=== PATIENT | female | born 1995 | race American Indian/Alaskan Native ===

== ENCOUNTER 2018-01-31 14:23 | Emergency (ER) | payer OTHER ==
--- NOTE | 2018-01-31 19:52 | Emergency Department Report ---
Abscess Boil HPI - HPI Chief Complaint: Animal Bite Stated Complaint: LUMP ON BACK Time Seen by Provider: 01/31/18 19:44 Duration: 3 Days Location: Back Severity: None History: Yes Insect Bite (left lower back), No Fever, No Pain, No Purulent Drainage, No Numbness, No Foreign Body, No Previous History HPI: This is a 22-year-old female here reports that she has insect bite and she does not know what kind and second was to her left lower back that happened 3 days ago and she is reporting redness and swelling to the area. She denies any fever or chills. Denies any drainage. Pain is 0 out of 10. No medication taken. Tetanus vaccine is not up-to-date. Denies any wheezing, cough, stridor , chest pain or shortness of breath. Denies any nausea or vomiting. Home Medications: Previous Rx's Medication Instructions Recorded Last Taken Type Cephalexin [Keflex] 500 mg PO Q8HR 7 Days #21 cap 01/31/18 Unknown Rx Allergies/Adverse Reactions: Allergies Allergy/AdvReac Type Severity Reaction Status Date / Time morphine Allergy Angioedema Verified 01/31/18 14:40 ED Review of Systems ROS: Stated complaint: LUMP ON BACK Other details as noted in HPI Constitutional: denies: chills, fever ENT: denies: ear pain, throat pain, congestion Respiratory: denies: cough, shortness of breath, SOB at rest, wheezing Cardiovascular: denies: chest pain, palpitations Gastrointestinal: denies: nausea, vomiting Musculoskeletal: denies: back pain, joint swelling, arthralgia Skin: rash, other (redness, swelling status post insect bite to left lower back) . denies: lesions Hematological/Lymphatic: as per HPI. denies: easy bruising ED Past Medical Hx - Past Medical History Previous Medical History?: No - Surgical History Past Surgical History?: No - Family History Family history: no significant - Social History Smoking Status: Never Smoker Substance Use Type: None - Medications Home Medications: Home Medications Medication Instructions Recorded Confirmed Last Taken Type Cephalexin [Keflex] 500 mg PO Q8HR 7 Days #21 cap 01/31/18 Unknown Rx ED Abscess Boil Physical Exam - Exam General: Vital signs noted. No distress. Alert and acting appropriately. This is a 22-year-old female well-nourished well-developed in no acute distress. She is nontoxic in appearance Front/Back of Body, Lg (Color): 1 - Patient with erythema, swelling would pinpoint opening to center to left lower back. Positive induration without any fluctuance. No drainage noted from site. 5 cm in length Size: 5 cm (nurse reports 6 inches but measured at 5 cm.) Exam: Yes Tenderness (minimal tenderness to left lumbar.), Yes Surrounding Cellulites/Erythema (3 cm of surrounding cellulitis), Yes Normal Neurologic Exam (alert and oriented 3. Normal gait), Yes Normal Circulation, No Fluctuance, No Lymphangitis, No Crepitation, No Heart Murmur (S1, S2, regular rate and rhythm) Exam: Lungs: Clear to auscultation bilaterally. No adventitious sounds. mouth : Normal exam, oral airways patent, uvula is midline and tongue is normal. I & D Note - I & D Note I & D Note: Simple abscess: Unable to incision and drainage due to indurated without any fluctuance. I discussed the patient that she needs to apply warm compresses to affected site 3-4 times a day to facilitate drainage and when ear become soft and it is not drainage that she should return to the emergency room if needed for incision and drainage and she voiced understanding. ED Course Vital Signs 01/31/18 14:34 Temperature 98.4 F Pulse Rate 95 H Respiratory 18 Rate Blood Pressure 139/66 O2 Sat by Pulse 100 Oximetry - Reevaluation(s) Reevaluation #1: 01/31/18 20:13 received tetanus vaccine in emergency room to update tetanus. Boostrix 0.5 mL injection without any adverse reaction Critical care attestation.: If time is entered above; I have spent that time in minutes in the direct care of this critically ill patient, excluding procedure time. ED Medical Decision Making - Medical Decision Making Patient has been evaluated by itself and physical findings for 5 cm indurated nonfluctuant area to left lumbar paraspinal area. Superficial in nature with 3 cm erythema and pinpoint opening to Center. Patient given strict 0.5 mL times one dose without any adverse reaction. PT instructed to place warm compresses to affected area 3-4 times a day to facilitate softening and drainage of simple abscess. I discussed with her that if ear become soft and is not draining. She is to return to the emergency room to have area incision and drainage was understanding. Patient instructed to keep affected area clean and dry and dictated on medication and diagnosis. She voiced understanding. Patient discharged home in stable condition with prescription for Keflex. Her vital signs are stable she's afebrile. She is in no acute distress. I also discussed with her to follow up with her primary care physician in 3 days and if she does not have a primary care physician to follow up with [facility] and also instructed to return to the emergency room ANIKA if area becomes more red, swollen, increasing pain and if she developed fever and/or chills. She voiced understanding. ED Disposition Clinical Impression: Simple abscess, Cellulitis of back Insect bite Qualifiers: Encounter type: initial encounter Qualified Code(s): W57.XXXA - Bitten or stung by nonvenomous insect and other nonvenomous arthropods, initial encounter Disposition: DC-01 TO HOME OR SELFCARE Is pt being admited?: No Does the pt Need Aspirin: No Condition: Stable Instructions: Animal Bite (ED), Abscess (ED), Cellulitis (ED) Additional Instructions: Keep affected area clean and dry Follow-up with your primary care physician in 3 days and if he did not have a primary care physician follow-up at [facility]. Antibiotic as prescribed Turned to the emergency room if affected ear become more red, increasing swelling, pain, fever and/or chills. Apply warm compresses to affected site 3-4 times a day until soft. If there is not draining N4 days then return to emergency room for incision and drainage. Prescriptions: Cephalexin [Keflex] 500 mg PO Q8HR 7 Days #21 cap Referrals: PRIMARY CAREMD [Primary Care Provider] - 02/03/18 [facility] [Outside] - 02/03/18 Forms: Work/School Release Form(ED), Accompanied Note
[2018-01-31] MEDS ORDERED: BOOSTRIX IM ONE (20:03)
[2018-01-31 20:12] VITALS: BP 140/68
== END 2018-01-31 20:26 | disposition home or self-care (01) ==
LOC: ED 14:23
DX: S30.860A Insect bite (nonvenomous) of lower back and pelvis, initial encounter (principal); L03.312 Cellulitis of back [any part except buttock and flank]; L02.212 Cutaneous abscess of back [any part, except buttock and flank]; Z88.6 Allergy status to analgesic agent; W57.XXXA Bitten or stung by nonvenomous insect and other nonvenomous arthropods, initial encounter; Y93.89 Activity, other specified; Y92.89 Other specified places as the place of occurrence of the external cause; Y99.8 Other external cause status
CPT/HCPCS: 90471; 90715; 99282

== ENCOUNTER 2018-09-14 15:54 | Emergency (ER) | payer OTHER ==
[2018-09-14 16:01] VITALS: BP 134/53
--- NOTE | 2018-09-14 16:14 | Emergency Department Report ---
Blank Doc - Documentation Documentation: This is a 23-year-old female that presents with intermittent cp in the left area under breast. Denies any radiation or SOB. Denies any other complaints or symptoms. This initial assessment diagnostic orders/clinical plan/treatment(s) is/are subject to change based on patient's health status, clinical progression and re- assessment by fellow clinical providers in the ED. Further treatment and workup at subsequent clinical providers discretion. Patient/guardians urged not to elope from ED s their condition may be serious if not clinically assessed and managed. Initial orders include: 1-Patient sent to [facility] for further evaluation and treatment 2- EKG 3- CXR
--- NOTE | 2018-09-14 16:49 | XRay Report ---
FINAL REPORT EXAM: XR CHEST ROUTINE 2V HISTORY: cp TECHNIQUE: Frontal and lateral chest radiographs. PRIORS: None. FINDINGS: The cardiomediastinal silhouette is normal. No focal consolidation. No pleural effusion. No pneumothorax. No acute osseous abnormality. IMPRESSION: No acute cardiopulmonary process.
--- NOTE | 2018-09-14 17:26 | Emergency Department Report ---
HPI - General Chief Complaint: Chest Pain Time Seen by Provider: 09/14/18 16:09 - HPI HPI: This is a 23-year-old female here report that she is having chest pain on and off to her left chest underneath her breasts. She did this as below and on for 2 days. Denies any injury. Denies any pain with taking deep breaths in. Denies any shortness of breath. She denies any history of heart disease in her family or personally. She denies any personal history of blood clots, denies control or any recent long distance travel or convalescent. She reports in triage said her pain was 0-10 when she came in but she said it is on and off and it feels sharp and achy but no radiation. She is not taken any medication. Nothing makes it better and nothing makes it worse. ED Past Medical Hx - Past Medical History Previous Medical History?: No - Surgical History Past Surgical History?: Yes Hx Cholecystectomy: Yes - Family History Family history: no significant - Social History Smoking Status: Never Smoker Substance Use Type: None - Medications Home Medications: Home Medications Medication Instructions Recorded Confirmed Last Taken Type cephALEXin [Keflex] 500 mg PO Q8HR 7 Days #21 cap 01/31/18 Unknown Rx Ibuprofen [Motrin] 800 mg PO Q8HR PRN #12 tablet 09/14/18 Unknown Rx ED Review of Systems ROS: Stated complaint: CHEST PAIN/HEADACHE Other details as noted in HPI Constitutional: denies: chills, fever ENT: denies: throat pain, congestion Respiratory: denies: cough, shortness of breath, wheezing Cardiovascular: chest pain. denies: palpitations, edema, syncope Gastrointestinal: denies: abdominal pain, nausea, vomiting, diarrhea, constipation Musculoskeletal: denies: back pain, joint swelling, arthralgia, myalgia Skin: denies: rash Neurological: denies: headache, abnormal gait, vertigo Physical Exam - Physical Exam Vital Signs: Vital Signs 09/14/18 15:59 Temperature 98.2 F Pulse Rate 81 Respiratory 18 Rate Blood Pressure 134/53 O2 Sat by Pulse 100 Oximetry General: 23-year-old female well-nourished well-developed in no acute distress Physical Exam: Head: Normocephalic atraumatic. Scalp examination and normal. Nontender to palpate. No abrasion, contusion or hematoma noted. Mouth: Oral mucosa moist, tongue is normal, uvula is midline, no ABSORBER OPERATOR or drooling, oral airways patent and uvula is Lungs: Clear to auscultated bilaterally, no rhonchi wheezes or rales. No use of accessory muscles. No chest wall tenderness CV: S1, S2. Regular rate rhythm negative murmur. Anterior chest wall tenderness to palpation under her left breast without any erythema or bruising. Eyes: Bilateral pupils equal and reactive to light, conjunctival injection or icterus. Bilateral EOM intact and normal accommodation. Skin: Clean dry and intact, no rash or lesions. Extremity: No cce. + 2 pulses in all extremities, no neurovascular compromise.No laceration, bruises then or contusion noted to extremities. Negative Homans signs bilaterally. No palpable cord bilateral lower extremity. Musculoskeletal: Range of motion in all extremities, no joint crepitus, erythema or effusion. Skin: Clean dry and intact, no rashes no lesions Mood: Normal mood and behavior ED Course Vital Signs 09/14/18 15:59 Temperature 98.2 F Pulse Rate 81 Respiratory 18 Rate Blood Pressure 134/53 O2 Sat by Pulse 100 Oximetry - Reevaluation(s) Reevaluation #1: 09/14/18 18:08 Patient is stable. EKG and chest x-ray stable ED Medical Decision Making - EKG Data -: EKG Interpreted by Wy EKG shows normal: sinus rhythm Rate: normal (80 bpm) - EKG Data Interpretation: no acute changes - Radiology Data Radiology results: report reviewed X-ray 2 view chest dictated by radiologist and report reviewed by myself. Findings [facility] [address] [place] [address] XRay Report Signed Patient: VALORIE PAUL MR#: [id number] : 1995 Acct:[id number] Age/Sex: 23 / F ADM Date: 09/14/18 Loc: ED Attending Dr: Ordering Physician: ROSE TRENT NP Date of Service: 09/14/18 Procedure(s): XR chest routine 2V Accession Number(s): [id number] cc: ROSE TRENT NP Fluoro Time In Minutes: FINAL REPORT EXAM: XR CHEST ROUTINE 2V HISTORY: cp TECHNIQUE: Frontal and lateral chest radiographs. PRIORS: None. FINDINGS: The cardiomediastinal silhouette is normal. No focal consolidation. No pleural effusion. No pneumothorax. No acute osseous abnormality. IMPRESSION: No acute cardiopulmonary process. Transcribed By: MG Dictated By: JORI GONZALEZ MD Electronically Authenticated By: JORI GONZALEZ MD Signed Date/Time: 09/14/181648 DD/ 47 TD/TT: 09/14/181647 - Medical Decision Making 23-year-old female here for chest pain for 2 days has been on and off. She is stable and in no acute distress and physical exam is normal Except she is having tenderness to palpate to left anterior chest wall beneath her left breast. EKG and chest x-ray with normal findings. Chest x-ray was of reviewed and dictated by radiologist. I discussed findings with patient and she voiced understanding. Vital signs stable and she is afebrile and she is not in any pain at present. Whilst criteria and perc rule, FLORI score and heart score is 0. Patient is a low risk for DVT, PE and ACS. Patient discharged home in stable condition with prescription for Motrin - Differential Diagnosis PNA, pleurisy, costochondritis Critical care attestation.: If time is entered above; I have spent that time in minutes in the direct care of this critically ill patient, excluding procedure time. ED Disposition Clinical Impression: Acute costochondritis Disposition: DC-01 TO HOME OR SELFCARE Is pt being admited?: No Does the pt Need Aspirin: No Condition: Stable Instructions: Thoracic Pain (ED) Additional Instructions: If his chest pain return and worsen, return to emergency room. Take Motrin and this will help with inflammation of the chest wall. Please take this medication and food Follow-up with primary care physician in 2-3 days and if he do not have one follow-up at [facility]. Referrals: FRANCIA COX MD [Primary Care Provider] - 2-3 Days Forms: Accompanied Note, Work/School Release Form(ED)
== END 2018-09-14 18:20 | disposition home or self-care (01) ==
LOC: ED 15:54
DX: M94.0 Chondrocostal junction syndrome [Tietze] (principal); Z90.49 Acquired absence of other specified parts of digestive tract; Z88.6 Allergy status to analgesic agent
CPT/HCPCS: 71046; 93005; 93010